=== PATIENT | male | born 1955 | race Caucasian/White ===

== ENCOUNTER → 2018-03-27 | Outpatient (CLI) | payer OTHER ==
[~2018-03-27] MED LIST: IOPAMIDOL (ISOVUE 370) 100 ML BTL IV ONE; METOPROLOL TARTRATE 5 MG/5 ML INJ ONE
== END ==
LOC: FIMAGING 14:00
PROVIDERS: ATTEND Internal Medicine Interventional Cardiology
DX: Z01.810 Encounter for preprocedural cardiovascular examination (principal); I71.2 Thoracic aortic aneurysm, without rupture; I10 Essential (primary) hypertension; I35.1 Nonrheumatic aortic (valve) insufficiency; R94.31 Abnormal electrocardiogram [ECG] [EKG]
CPT/HCPCS: Q9967

== ENCOUNTER 2018-03-29 08:26 | Day surgery (SDC) | payer OTHER ==
[2018-03-29] MEDS ORDERED: ceFAZolin 2 GM/DEXTROSE 100 ML IV ONE (09:00)
[2018-03-29] MEDS ORDERED: LR 1,000 ML IV ONE (09:01)
--- NOTE | 2018-03-29 10:00 | PDHPUP ---
History & Physical Update H&P update statement: This history and physical update is based on an assessment of the patient which was completed after admission or registration (within 24 hours), but prior to the surgery/procedure. H&P update: H&P reviewed & patient examined, no change in patient's condition since H&P completed
--- NOTE | 2018-03-29 10:10 | PDANEPAE ---
ANE History of Present Illness ventral hernia repair possible mesh ANE Past Medical History - Cardiovascular History Hx Hypertension: Yes Hx Arrhythmias: No Hx Chest Pain: No Hx Coronary Artery / Peripheral Vascular Disease: Yes Hx CHF / Valvular Disease: Yes Hx Palpitations: No Cardiovascular History Comment: Ascending AO dilated to 4.6 cm. mod/severe AI - Pulmonary History Hx COPD: No Hx Asthma/Reactive Airway Disease: No Hx Recent Upper Respiratory Infection: No Hx Oxygen in Use at Home: No Hx Sleep Apnea: No Sleep Apnea Screening Result - Last Documented: Positive Pulmonary History Comment: MAXIMO triggers only - Neurologic History Hx Cerebrovascular Accident: No Hx Seizures: No Hx Dementia: No - Endocrine History Hx Diabetes: No - Renal History Hx Renal Disorders: No - Liver History Hx Hepatic Disorders: No - Neurological & Psychiatric Hx Hx Neurological and Psychiatric Disorders: No - Cancer History Hx Cancer: No - Congenital Disorder History Hx Congenital Disorders: No - GI History Hx Gastrointestinal Disorders: No - Other Health History Other Health History: wears glasses - Chronic Pain History Chronic Pain: No - Surgical History Prior Surgeries: left knee scope, 2018. Kaiden hoang Review of Systems Review of Systems: - Exercise capacity METS (RN): 4 METS ANE Patient History - Allergies Allergies/Adverse Reactions: No Known Allergies Allergy (Verified 03/26/18 13:28) - Home Medications Home medications: home medication list seen and reviewed Home Medications: Amlodipine Besylate 03/26/18 [Last Taken 03/29/18 07:15] - NPO status NPO Status: no food or drink >8 hours NPO Since - Liquids (Date): 03/29/18 NPO Since - Liquids (Time): 07:15 NPO Since - Solids (Date): 03/28/18 NPO Since - Solids (Time): 20:00 - Smoking Hx Smoking Status: Never smoked - Alcohol Use Alcohol Use: Occasionally - Family Anes Hx Family Anes Hx: none Family Hx Anesthesia Complications: none ANE Labs/Vital Signs - Vital Signs Blood Pressure: 120/75 Heart Rate: 55 Respiratory Rate: 16 O2 Sat (%): 94 Height: 170.18 cm Weight: 95.361 kg ANE Physical Exam - Airway Mallampati Score: Class 2 Mouth exam: normal dental/mouth exam - Pulmonary Pulmonary: no respiratory distress - Cardiovascular Cardiovascular: regular rate and rhythym - ASA Status ASA Status: II ANE Anesthesia Plan Anesthesia Plan: general endotracheal anesthesia
[2018-03-29] MEDS ORDERED: BUPIVACAINE 0.5% 30 ML SDV ONE (10:14)
[2018-03-29] MEDS ORDERED: PROPOFOL/EMULSION 500 MG/50 ML BOTTLE IV ONE (10:24)
[2018-03-29] MEDS ORDERED: ROCURONIUM 50 MG/5 ML VIAL ONE (10:24)
[2018-03-29] MEDS ORDERED: fentaNYL 100 MCG/2 ML INJ ONE ×2 (10:24→12:29)
[2018-03-29] MEDS ORDERED: DEXAMETHASONE 4 MG/ML VIAL ONE ×2 (10:24)
[2018-03-29] MEDS ORDERED: ONDANSETRON 4 MG/2 ML VIAL ONE (10:25)
[2018-03-29] MEDS ORDERED: LIDOCAINE 2% 100 MG/5 ML SYR ONE (10:25)
[2018-03-29] MEDS ORDERED: LIDOCAINE HCL 160 MG/4 ML LTA KIT TP ONE (10:27)
[2018-03-29] MEDS ORDERED: LABETALOL HCL 5 MG/ML 20 ML MDV IVP PRN (11:33)
[2018-03-29] MEDS ORDERED: ACETAMINOPHEN 500 MG TAB PO PRN (11:33)
[2018-03-29] MEDS ORDERED: oxyCODONE IR 5 MG TAB PO PRN (11:33)
[2018-03-29] MEDS ORDERED: MEPERIDINE 25 MG/0.5 ML AMP IVP PRN (11:33)
[2018-03-29] MEDS ORDERED: LR 500 ML IV PRN (11:33)
[2018-03-29] MEDS ORDERED: HYDROCODONE/APAP 5/325 TAB PO PRN (11:33)
[2018-03-29] MEDS ORDERED: METOCLOPRAMIDE 10 MG/2 ML VIAL IVP PRN (11:33)
[2018-03-29] MEDS ORDERED: DEXAMETHASONE 4 MG/ML VIAL IVP PRN (11:33)
[2018-03-29] MEDS ORDERED: NALOXONE HCL 0.4 MG/ML INJ IVP PRN (11:33)
[2018-03-29] MEDS ORDERED: PROMETHAZINE HCL 25 MG/ML INJ IVP PRN (11:33)
[2018-03-29] MEDS ORDERED: ONDANSETRON 4 MG/2 ML VIAL IVP PRN (11:33)
[2018-03-29] MEDS ORDERED: PHENYLEPHRINE HCL 100 MCG/ML SYR IVP PRN (11:33)
[2018-03-29] MEDS ORDERED: fentaNYL 100 MCG/2 ML INJ IVP PRN (11:33)
[2018-03-29] MEDS ORDERED: ALBUTEROL 3 ML DEYVIAL IH PRN (11:33)
[2018-03-29] MEDS ORDERED: GLYCOPYRROLATE 0.2 MG/1 ML VIAL ONE ×2 (11:37)
[2018-03-29] MEDS ORDERED: NEOSTIGMINE METHYLSULFATE 5 MG/5 ML SYR ONE (11:37)
--- NOTE | 2018-03-29 12:00 | POSTOPPROG ---
Post Op Note Date of Operation: 03/29/18 Surgeon: Cisco Dunlap Sign Out Clerk: Kerline Anesthesiologist: Bruce Anesthesia: GET(General Endotracheal) Pre-op Diagnosis: Ventral hernia Post-op Diagnosis: Ventral hernia, umbilical hernia Indication: pain Procedure: Ventral and umbilical hernia repairs Findings: Small ventral hernia and umbilical hernia Inf/Abcess present in the surg proc area at time of surgery?: No Depth: Organ Space EBL: Minimal Specimen(s): ventral hernia sac
[2018-03-29] MEDS ORDERED: oxyCODONE IR 5 MG TAB ONE ×2 (12:20→13:13)
--- NOTE | 2018-03-29 13:26 | POSTANESTH ---
Post Anesthetic Evaluation Cardiovascular Status: Normal, Stable Respiratory Status: Normal, Stable Level of Consciousness/Mental Status: Can Participate in Eval Pain Control: Adequate, Prn Tx Ordered Nausea/Vomiting Control: Adequate, Prn Tx Ordered Complications Possibly Related to Anesthesia: None Noted
[2018-03-29 15:27] VITALS: BP 136/83
--- NOTE | 2018-04-01 12:29 | GOP ---
DATE OF OPERATION: 03/29/2018 SURGEON: Cisco Dunlap MD ICE CUTTER: Kathy Churchill NP ANESTHESIOLOGIST: Lan Barrera MD PREOPERATIVE DIAGNOSIS: Ventral hernia. POSTOPERATIVE DIAGNOSIS: Ventral hernia plus umbilical hernia. PROCEDURE PERFORMED: OPEN VENTRAL HERNIA REPAIR WITH MESH AND UMBILICAL HERNIA REPAIR FINDINGS: Patient was found to have a 5 cm ventral hernia. He also had a small less than 1 cm umbilical hernia. DESCRIPTION OF PROCEDURE: The patient was taken to the operating room where he received a satisfactory general endotracheal anesthesia. He was placed in supine position, prepped and draped in the usual sterile fashion. A vertical midline incision was made over the palpable hernia defect. Dissection extended down through subcutaneous tissue. The hernia sac was dissected free from surrounding subcutaneous tissue back to the fascial edges. The sac was then opened and its contents reduced. Excess sac was excised. Subfascial space was created. The fascial edges were freshened up and dissecting distally. A small umbilical hernia was identified. This was freed up and then closed with 0 Ethibond [id number] sutures from inside the abdomen. The subcutaneous was then approximated with 3-0 Vicryl, and a dual-sided Covidien mesh patch was placed subfascially and secured around the periphery with interrupted 0 Ethibond mattress sutures. The primary defect was then closed with interrupted #1 Ethibond [id number] sutures. These were tied without tension. The wound was infiltrated with 0.5% Marcaine. Subcutaneous was closed with 3-0 Vicryl, skin with a 4-0 Monocryl subcuticular stitch. He tolerated the procedure well, was taken to the recovery room in good condition. There were no complications. /[id number]/MODL MTDD
== END 2018-03-29 15:20 | disposition home or self-care (01) ==
LOC: FSGY 08:26
PROVIDERS: ATTEND Surgery
PROC: 0WUF0JZ Supplement Abdominal Wall with Synthetic Substitute, Open Approach (ICD-10-PCS; principal; 2018-03-29 10:15)
DX: K43.9 Ventral hernia without obstruction or gangrene (principal); K42.9 Umbilical hernia without obstruction or gangrene; I10 Essential (primary) hypertension
CPT/HCPCS: C1781; J0690; J1100; J2001; J2405; J2704; J2710; J3010

== ENCOUNTER 2018-06-26 12:29 | Inpatient (IN) | payer OTHER ==
[2018-06-26] MEDS ORDERED: NS 1,000 ML IV ONE (12:41)
[2018-06-26] MEDS ORDERED: FAMOTIDINE 20 MG TAB PO ONE (12:41)
[2018-06-26] MEDS ORDERED: ASPIRIN EC 325 MG TAB PO ONE ×2 (12:41→12:57)
[2018-06-26] MEDS ORDERED: DIAZEPAM 5 MG TAB PO ONE (12:41)
[2018-06-26] MEDS ORDERED: diphenhydrAMINE 25 MG CAP PO ONE ×2 (12:41→12:56)
[2018-06-26] MEDS ORDERED: FAMOTIDINE 20 MG TAB ONE (12:56)
[2018-06-26] MEDS ORDERED: DIAZEPAM 5 MG TAB ONE (12:57)
[2018-06-26 13:21] LABS: PLATELET COUNT 231 10^3/uL (150-400)
[2018-06-26 13:30] LABS: INR 0.97 (0.83-1.16); PROTIME(PATIENT) 13.1 SEC (12.0-15.0)
--- NOTE | 2018-06-26 13:33 | PDGENHP ---
History & Physical Chief Complaint: Valvular heart disease andthoracic aortic aneurysm. History of Present Illness: 62 y/o male with severe aortic regurgitation and dilated ascending aorta that have been followed longitudinally. Most recent echo demonstrated that the LV has started to dilate. He is now scheduled for AVR and TAA repair tomorrow. Needs cath to assess for CAD. Pertinent Past, Social, Family History: See CT surgery note from 04/23/2018. Relevant Physical Exam: A&O x 3. Lungs CTA. RRR w/o M/R/G. No edema. Enmanuel test on right wrist normal at < 5 sec.
--- NOTE | 2018-06-26 13:35 | PDPROPOC ---
Sedation Plan of Care Sedation Plan of Care: vital signs stable, mental status noted, patient educated of risks, benefits, alternatives, patient can tolerate sedation ASA Classification: ASA 1 Planned drugs: fentanyl, midazolam Mallampati Score: Class 2 Mallampati Reference Image: Patient passed 3-3-2 rule?: Yes
[2018-06-26] MEDS ORDERED: LIDOCAINE 1% 300 MG/30 ML SDV ONE (13:49)
[2018-06-26] MEDS ORDERED: VERAPAMIL 5 MG/2 ML VIAL ONE (13:50)
[2018-06-26] MEDS ORDERED: fentaNYL 100 MCG/2 ML INJ ONE (13:50)
[2018-06-26] MEDS ORDERED: MIDAZOLAM 2 MG/2 ML VIAL ONE (13:50)
[2018-06-26] MEDS ORDERED: HEPARIN 10,000 UNIT/10 ML MDV (1,000 UNIT/ML) ONE (13:51)
[2018-06-26] MEDS ORDERED: IOPAMIDOL (ISOVUE-370) 150 ML BTL IV ONE (13:51)
[2018-06-26] MEDS ORDERED: ATROPINE SULFATE 1 MG/10 ML SYR IVP PRN (14:59)
[2018-06-26] MEDS ORDERED: ONDANSETRON 4 MG/2 ML VIAL IVP PRN (14:59)
[2018-06-26] MEDS ORDERED: ACETAMINOPHEN 325 MG TAB PO PRN (14:59)
[2018-06-26] MEDS ORDERED: HYDROCODONE/APAP 5/325 TAB PO PRN (14:59)
[2018-06-26] MEDS ORDERED: NS 1,000 ML IV SCH (15:00)
--- NOTE | 2018-06-26 15:09 | PDDXCAT ---
Diagnostic Cath Note - . Date: 06/26/18 Pickling Machine Operator: Chance Indication: other (Pre-op for AVR and TAA repair.) - Procedure Access: right groin (started from right radial but had to switch due to innominate tortusoity) - Materials Left Heart Cath size: 5F
--- NOTE | 2018-06-26 16:36 | PDGENHP ---
History and Physical - Chief Complaint preop AVR, ascending aortic replacement - History of Present Illness 62 yo hypertensive male with a 4.7 cm ascending aorta and significant AI (of a trileaflet aortic valve), assoc with onset of left chamber dilatation and class II functional symptoms, admitted in advance of elective AVR/asc ao replacement to complete surgical risk stratification. No obstructive coronary or carotid disease identified. He denies changes in weight, stamina or dyspnea. No orthopnea, edema, or palpitations. History Information - Allergies/Home Medication List Allergies/Adverse Reactions: No Known Allergies Allergy (Verified 06/21/18 12:32) Home Medications: amLODIPine BESYLATE [Norvasc 5 mg (*)] 5 mg PO BID #0 03/26/18 [Last Taken 06/26] Carboxymethylcellulose 1% [Refresh Celluvisc (*)] 1 drop EACHEYE Q2 PRN [Last Taken Unknown] Ibuprofen [Motrin (*)] 600 mg PO TID PRN 06/19/18 [Last Taken Unknown] I have personally reviewed and updated: medical history, social history, surgical history - Past Medical History hypertension, hyperlipidemia - Surgical History Reports: hernia repair Additional surgical history: knee surgery - Social History Smoking Status: Never smoked Alcohol Use: Other (beer, daily) Review of Systems Review of Systems: ROS: 10pt was reviewed & negative except for what was stated in HPI & below Physical Exam Physical Exam: Constitutional: no apparent distress, appears nourished Eyes: other (PER) Ears, Nose, Mouth, Throat: moist mucous membranes, hearing normal, other (no visible dental disrepair) Cardiovascular: regular rate and rhythym, diastolic murmur, other (water hammer pulses) Peripheral Pulses: 3+: dorsalis-pedis (R), dorsalis-pedis (L) Respiratory: clear to auscultation Gastrointestinal: normoactive bowel sounds, soft, non-tender abdomen Genitourinary: no bladder fullness Skin: warm, no rashes or abrasions Musculoskeletal: other (symmetric tone) Psychiatric: interacting appropriately, not anxious Lab Data & Imaging Review 06/26/18 13:00 06/27/18 04:38 WBC 4.59 10^3/uL (3.80-9.50) 06/26/18 13:00 RBC 4.83 10^6/uL (4.40-6.38) 06/26/18 13:00 Hgb 15.0 g/dL (13.7-17.5) 06/26/18 13:00 Hct 43.0 % (40.0-51.0) 06/26/18 13:00 MCV 89.0 fL (81.5-99.8) 06/26/18 13:00 MCH 31.1 pg (27.9-34.1) 06/26/18 13:00 MCHC 34.9 g/dL (32.4-36.7) 06/26/18 13:00 RDW 12.5 % (11.5-15.2) 06/26/18 13:00 Plt Count 231 10^3/uL (150-400) 06/26/18 13:00 MPV 9.7 fL (8.7-11.7) 06/26/18 13:00 Neut % (Auto) 54.5 % (39.3-74.2) 06/26/18 13:00 Lymph % (Auto) 30.1 % (15.0-45.0) 06/26/18 13:00 [place] % (Auto) 12.4 % (4.5-13.0) 06/26/18 13:00 Eos % (Auto) 2.4 % (0.6-7.6) 06/26/18 13:00 Baso % (Auto) 0.4 % (0.3-1.7) 06/26/18 13:00 Nucleat RBC Rel Count 0.0 % (0.0-0.2) 06/26/18 13:00 Absolute Neuts (auto) 2.50 10^3/uL (1.70-6.50) 06/26/18 13:00 Absolute Lymphs (auto) 1.38 10^3/uL (1.00-3.00) 06/26/18 13:00 Absolute Monos (auto) 0.57 10^3/uL (0.30-0.80) 06/26/18 13:00 Absolute Eos (auto) 0.11 10^3/uL (0.03-0.40) 06/26/18 13:00 Absolute Basos (auto) 0.02 10^3/uL (0.02-0.10) 06/26/18 13:00 Absolute Nucleated RBC 0.00 10^3/uL (0-0.01) 06/26/18 13:00 Immature Gran % 0.2 % (0.0-1.1) 06/26/18 13:00 Immature Gran # 0.01 10^3/uL (0.00-0.10) 06/26/18 13:00 PT 13.1 SEC (12.0-15.0) 06/26/18 13:00 INR 0.97 (0.83-1.16) 06/26/18 13:00 Sodium 138 mEq/L (135-145) 06/26/18 13:00 Potassium 4.2 mEq/L (3.5-5.2) 06/26/18 13:00 Chloride 110 mEq/L (97-110) 06/26/18 13:00 Carbon Dioxide 22 mEq/l (22-31) 06/26/18 13:00 Anion Gap 6 mEq/L (6-14) 06/26/18 13:00 BUN 20 mg/dL (7-23) 06/26/18 13:00 Creatinine 1.0 mg/dL (0.7-1.3) 06/26/18 13:00 Estimated GFR > 60 06/26/18 13:00 Glucose 84 mg/dL (70-100) 06/26/18 13:00 Hemoglobin A1c 5.5 % (4.0-6.0) 06/26/18 13:00 Estim Average Glucose 111 mg/dL (68-126) 06/26/18 13:00 Calcium 9.1 mg/dL (8.5-10.4) 06/26/18 13:00 Magnesium 2.1 mg/dL (1.6-2.3) 06/26/18 13:00 Triglycerides 90 mg/dL (40-150) 06/26/18 13:00 Cholesterol 212 mg/dL (140-220) 06/26/18 13:00 Cholesterol Risk Factr 0.4 (0.2-1.0) 06/26/18 13:00 LDL Cholesterol, Calc 106 mg/dL (80-100) H 06/26/18 13:00 LDL Risk Factor 0.6 (0.2-1.0) 06/26/18 13:00 VLDL Cholesterol 18 mg/dL (8-25) 06/26/18 13:00 Non-HDL Cholesterol 124 mg/dL (90-129) 06/26/18 13:00 HDL Cholesterol 88 mg/dL (40-65) H 06/26/18 13:00 LDL/HDL Ratio 1.20 RATIO (1.00-3.64) 06/26/18 13:00 Cholesterol/HDL Ratio 2.41 RATIO (1.00-4.97) 06/26/18 13:00 Patient ABO/Rh O POSITIVE 06/26/18 13:00 Antibody Screen NEGATIVE 06/26/18 13:00 Imaging Review: CT scan, carotid US, echo reports EKG Interpretation: Positive for: normal sinsus rhythm, other (LAFB) Assessment & Plan Assessment: Aneurysmal ascending aorta Symptomatic AI Valvular cardiomyopathy CAD excluded Plan: Tissue AVR and ascending aortic replacement 06/27 as planned Consent per Dr Ball. No questions/concerns voiced.
[2018-06-26] MEDS ORDERED: BEER 1 EACH EA PO PRN (18:29)
[2018-06-26] MEDS ORDERED: CHLORHEXIDINE GLUC HIBICLENS 118 ML BTL TP SCH (21:00)
[2018-06-26] MEDS: MUPIROCIN 2% 22 GM OINT NS SCH (21:44)
[2018-06-26] MEDS: SENNOSIDES/DOCUSATE SODIUM TAB PO SCH (21:44)
[2018-06-27] MEDS ORDERED: ceFAZolin 2 GM/DEXTROSE 100 ML IV ONE ×2 (06:00→08:30)
[2018-06-27] MEDS ORDERED: LR 1,000 ML IV ONE (06:11)
[2018-06-27] MEDS ORDERED: ALBUMIN 5% 250 ML BOTTLE IV ONE ×2 (06:20→10:47)
[2018-06-27] MEDS ORDERED: PHENYLEPHRINE HCL 100 MCG/ML SYR ONE (06:20)
[2018-06-27] MEDS ORDERED: PROPOFOL/EMULSION 500 MG/50 ML BOTTLE IV ONE (06:20)
[2018-06-27] MEDS ORDERED: CALCIUM CHLORIDE 1 GM/10 ML INJ ONE (06:20)
[2018-06-27] MEDS ORDERED: PROTAMINE SULFATE 50 MG/5 ML VIAL IVP ONE (06:20)
[2018-06-27] MEDS ORDERED: NITROGLYCERIN/D5W 50 MG/250 ML BOTTLE IV ONE (06:20)
[2018-06-27] MEDS ORDERED: SODIUM BICARBONATE 50 MEQ/50 ML SYR ONE (06:20)
[2018-06-27] MEDS ORDERED: CITRATE DEXTROSE SOLN 500 ML BAG ONE (06:20)
[2018-06-27] MEDS ORDERED: AMINOCAPROIC ACID 5 GM/20 ML VIAL ONE ×2 (06:20)
[2018-06-27] MEDS: MUPIROCIN 2% 22 GM OINT NS SCH ×2 (06:28→19:53)
[2018-06-27] MEDS ORDERED: ePHEDrine SULFATE 25 MG/5 ML SYR ONE (07:00)
[2018-06-27] MEDS ORDERED: LIDOCAINE 2% 100 MG/5 ML SYR ONE (07:00)
[2018-06-27] MEDS ORDERED: MINERAL OIL 10 ML VIAL ONE (07:00)
[2018-06-27] MEDS ORDERED: fentaNYL 250 MCG/5 ML INJ ONE (07:00)
[2018-06-27] MEDS ORDERED: HEPARIN 10,000 UNIT/10 ML MDV (1,000 UNIT/ML) ONE (07:00)
[2018-06-27] MEDS ORDERED: MAGNESIUM SULFATE 1 GM/2 ML VIAL ONE (07:00)
[2018-06-27] MEDS ORDERED: MIDAZOLAM 2 MG/2 ML VIAL ONE (07:18)
[2018-06-27] MEDS ORDERED: DEXAMETHASONE 4 MG/ML VIAL ONE ×2 (07:51)
[2018-06-27] MEDS ORDERED: KETAMINE 200 MG/20 ML VIAL ONE (07:56)
--- NOTE | 2018-06-27 08:27 | PDANEPAE ---
ANE History of Present Illness here for AVR ANE Past Medical History - Cardiovascular History Hx Hypertension: Yes Hx Arrhythmias: No Hx Chest Pain: No Hx Coronary Artery / Peripheral Vascular Disease: Yes Hx CHF / Valvular Disease: Yes Hx Palpitations: No Cardiovascular History Comment: Ascending AO dilated to 4.6 cm. mod/severe AI - Pulmonary History Hx COPD: No Hx Asthma/Reactive Airway Disease: No Hx Recent Upper Respiratory Infection: No Hx Oxygen in Use at Home: No Hx Sleep Apnea: No Sleep Apnea Screening Result - Last Documented: Positive Pulmonary History Comment: MAXIMO triggers only - Neurologic History Hx Cerebrovascular Accident: No Hx Seizures: No Hx Dementia: No - Endocrine History Hx Diabetes: No - Renal History Hx Renal Disorders: No - Liver History Hx Hepatic Disorders: No - Neurological & Psychiatric Hx Hx Neurological and Psychiatric Disorders: No - Cancer History Hx Cancer: No - Congenital Disorder History Hx Congenital Disorders: No - GI History Hx Gastrointestinal Disorders: No - Other Health History Other Health History: wears glasses - Chronic Pain History Chronic Pain: No - Surgical History Prior Surgeries: left knee scope, 2018. Kaiden hoang Review of Systems Review of systems is: negative Review of Systems: - Exercise capacity Exercise capacity: >=4 METS ANE Patient History - Allergies Allergies/Adverse Reactions: No Known Allergies Allergy (Verified 06/21/18 12:32) - Home Medications Home medications: home medication list seen and reviewed Home Medications: amLODIPine BESYLATE [Norvasc 5 mg (*)] 5 mg PO BID #0 03/26/18 [Last Taken 06/26] Carboxymethylcellulose 1% [Refresh Celluvisc (*)] 1 drop EACHEYE Q2 PRN [Last Taken Unknown] Ibuprofen [Motrin (*)] 600 mg PO TID PRN 06/19/18 [Last Taken Unknown] - NPO status NPO Status: no food or drink >8 hours NPO Since - Liquids (Date): 06/27/18 NPO Since - Liquids (Time): 05:00 NPO Since - Solids (Date): 06/27/18 NPO Since - Solids (Time): 00:01 - Smoking Hx Smoking Status: Never smoked - Alcohol Use Alcohol Use: Other (beer, daily) - Family Anes Hx Family Hx Anesthesia Complications: none ANE Labs/Vital Signs - Labs Result Diagrams: 06/26/18 13:00 06/27/18 04:38 - Vital Signs Vital Signs: reviewed preoperatively; see RN documention for details Blood Pressure: 156/81 Heart Rate: 63 Respiratory Rate: 16 O2 Sat (%): 94 Height: 170.18 cm Weight: 96.4 kg ANE Physical Exam - Airway Neck exam: FROM Mallampati Score: Class 1 - Pulmonary Pulmonary: no respiratory distress - Cardiovascular Cardiovascular: regular rate and rhythym - ASA Status ASA Status: III ANE Anesthesia Plan Anesthesia Plan: general endotracheal anesthesia Lines/Monitors: arterial line, central line, MITCH
[2018-06-27] MEDS ORDERED: DIAZEPAM 5 MG TAB PO ONE (08:30)
[2018-06-27] MEDS ORDERED: diphenhydrAMINE 25 MG CAP PO ONE (08:30)
[2018-06-27] MEDS ORDERED: MIDAZOLAM 2 MG/2 ML VIAL IVP ONE (08:45)
[2018-06-27] MEDS ORDERED: FAMOTIDINE 20 MG TAB PO ONE (08:45)
[2018-06-27] MEDS ORDERED: MUPIROCIN 2% 22 GM OINT NS ONE (08:45)
[2018-06-27] MEDS ORDERED: MANNITOL 25% 12.5 GM/50 ML VIAL IVP ONE (09:00)
[2018-06-27] MEDS ORDERED: PHENYLEPHRINE HCL 50 MG in NS 250 ML IV ONE (09:00)
[2018-06-27] MEDS ORDERED: NOREPINEPHRINE BITARTRATE 16 MG in NS 250 ML IV ONE (09:00)
[2018-06-27] MEDS ORDERED: NS 1,000 ML IV ONE (09:00)
[2018-06-27] MEDS ORDERED: niCARdipine/NACL 200 ML IV ONE (09:00)
[2018-06-27] MEDS ORDERED: CARDIOPLEGIA DEL NIDO SOLN 1,052.8 ML PF ONE (09:00)
[2018-06-27] MEDS ORDERED: INSULIN REGULAR HUMAN 100 UNIT in NS 100 ML IV ONE (09:00)
[2018-06-27] MEDS ORDERED: CARDIOPLEGIC SOLUTION 1,052.8 ML PF ONE (09:30)
--- NOTE | 2018-06-27 09:42 | CPEKG ---
Test Reason : OPEN Blood Pressure : / mmHG Vent. Rate : 063 BPM Atrial Rate : 063 BPM P-R Int : 184 ms QRS Dur : 108 ms QT Int : 434 ms P-R-T Axes : 014 -51 010 degrees QTc Int : 445 ms Sinus rhythm Left anterior fascicular block Borderline T wave abnormalities Confirmed by Dakota Ma ([id number]) on 06/27/2018 9:41:44 AM Referred By: Confirmed By:Dakota Ma
[2018-06-27] MEDS ORDERED: HYDROmorphONE/DILAUDID 2 MG/ML INJ ONE (09:49)
[2018-06-27] MEDS ORDERED: SUGAMMADEX SODIUM 200 MG/2 ML VIAL IVP ONE (09:58)
[2018-06-27] MEDS ORDERED: LACTULOSE 20 GM/30 ML UDCUP PO PRN (10:41)
[2018-06-27] MEDS ORDERED: ONDANSETRON DISINTEGRATING 4 MG TAB PO PRN (10:41)
[2018-06-27] MEDS ORDERED: METOCLOPRAMIDE 10 MG/2 ML VIAL IVP PRN (10:41)
[2018-06-27] MEDS ORDERED: MAGNESIUM HYDROXIDE 30 ML UDCUP PO PRN (10:41)
[2018-06-27] MEDS ORDERED: CEPACOL LOZENGE PO PRN (10:41)
[2018-06-27] MEDS ORDERED: D50W 25 GM/50 ML SYR IVP PRN (10:41)
[2018-06-27] MEDS ORDERED: POTASSIUM Cl (KCl) 50 ML IV PRN (10:41)
[2018-06-27] MEDS ORDERED: SODIUM CL NASAL 45 ML BTL EACHNARE PRN (10:41)
[2018-06-27] MEDS ORDERED: MEPERIDINE 25 MG/0.5 ML AMP IVP PRN (10:41)
[2018-06-27] MEDS ORDERED: POLYETHYLENE GLYCOL 3350 17 GM PKT PO PRN (10:41)
[2018-06-27] MEDS ORDERED: PANTOPRAZOLE SODIUM 40 MG VIAL IVP ONE (10:41)
[2018-06-27] MEDS ORDERED: niCARdipine/NACL 200 ML IV PRN (10:41)
[2018-06-27] MEDS ORDERED: BISACODYL 10 MG SUPP PR PRN (10:41)
[2018-06-27] MEDS ORDERED: CARBOXYMETHYLCELLULOSE 1% 0.4 ML DROPERETTE EACHEYE PRN ×2 (10:41→11:00)
[2018-06-27] MEDS ORDERED: NS 1,000 ML IV SCH (10:45)
[2018-06-27] MEDS ORDERED: PROPOFOL 200 MG/20 ML VIAL ONE (10:46)
[2018-06-27] MEDS ORDERED: INSULIN REGULAR HUMAN 100 UNIT in NS 100 ML IV SCH (11:00)
--- NOTE | 2018-06-27 11:25 | GOP ---
DATE OF OPERATION: 06/27/2018 SURGEON: John Ball DO HEPATOLOGY PHYSICIAN: Jono. ANESTHESIOLOGIST: Isael. PREOPERATIVE DIAGNOSIS: 1. Ascending aortic aneurysm. 2. Severe aortic insufficiency with left ventricular dilation. 3. Obesity. POSTOPERATIVE DIAGNOSIS: 1. Ascending aortic aneurysm. 2. Severe aortic insufficiency with left ventricular dilation. 3. Obesity. PROCEDURE PERFORMED: 1. Aortic valve replacement with a #27 Inspiris valve. 2. Replace the ascending aorta with a 28 mm Hemashield graft. 3. 35 mm AtriClip across the left atrial appendage. FINDINGS: DESCRIPTION OF PROCEDURE: The patient was consented for surgery, brought to the operating room, intu bated. Monitoring lines were placed. He was prepped and draped in sterile classical manner. Sterno kojo was performed. The patient was heparinized. Cannulas were placed in the transverse arch and ri ght atrium as well as a retrograde catheter. Cardiopulmonary bypass was begun. The aorta was crossc lamped. Retrograde cardioplegia was administered as well as topical hypothermia and systemic cooling . LV sump was placed through the right superior pulmonary vein. Aorta was excised from the sinotubu lar junction up to the base of the innominate artery. There was absolutely no evidence of plaque or fatty streaking in this patient's tissues, of note. A trileaflet valve with central regurgitation an d significant annular dilatation was identified. The leaflets were excised. There was no calcium or debris. LV chamber was irrigated. CO2 was infused. A 27 mm Inspiris valve was sutured in a supra- annular position with interrupted 2-0 Tycron pledgeted mattress sutures and Cor-Knots. We then place d a 28 mm Hemashield graft end to side distally and proximally with a continuous running 3-0 Prolene suture, reinforced in several sites with pledgeted mattress sutures. BioGlue was applied externally. We then placed a 35 mm clip across the base of the left atrial appendage. The patient was placed i n deep Trendelenburg. The crossclamp was removed with suction on the ascending and LV vent. With th e LV vent off, intermittent aspiration was performed through the apex until no further air was identi fied on echo. The LV sump was removed. The patient was easily weaned from bypass in Trendelenburg. When no further air was identified, he was flattened out in a horizontal position. Heparin was reve rsed with protamine. The cannula was removed and oversewn. Two ventricular pacing wires, 2 mediasti nal drains were placed. The thymic fat and pericardium were closed. The chest was closed in standar d fashion. The patient was returned to the ICU in stable condition. /[id number]/MODL
[2018-06-27] MEDS: ALBUMIN 5% 250 ML IV PRN ×2 (11:30→12:58)
[2018-06-27] MEDS: DEXMEDETOMIDINE HCL 400 MCG in NS 100 ML IV SCH (11:30)
[2018-06-27] MEDS: SENNOSIDES/DOCUSATE SODIUM TAB PO SCH (11:37)
--- NOTE | 2018-06-27 11:38 | POSTANESTH ---
Post Anesthetic Evaluation Cardiovascular Status: Normal, Stable Respiratory Status: Requires Airway Assist Level of Consciousness/Mental Status: Unconscious Pain Control: Adequate, Prn Tx Ordered Nausea/Vomiting Control: Adequate, Prn Tx Ordered Complications Possibly Related to Anesthesia: None Noted
[2018-06-27] MEDS: KETOROLAC 15 MG/1 ML SDV IVP SCH ×2 (12:19→18:10)
[2018-06-27] MEDS: fentaNYL 100 MCG/2 ML INJ IVP PRN ×2 (12:35→12:52)
[2018-06-27] MEDS ORDERED: traMADol 50 MG TAB PO PRN (13:00)
[2018-06-27] MEDS ORDERED: DOPamine/DEXTROSE 400 MG/250 ML BAG IV ONE (13:15)
[2018-06-27] MEDS: ceFAZolin 2 GM/DEXTROSE 100 ML IV SCH ×2 (14:02→23:06)
--- NOTE | 2018-06-27 14:29 | PDCONSULT ---
Research/Program Director Note: ASSESSMENT 62-year-old obese male with ascending aortic aneurysm and severe aortic insufficiency with LV dilation status post bioprosthetic AVR and ascending aortic aneurysm repair as well as CHANDU closure POD 0 # ascending aortic aneurysm status post repair # Severe aortic insufficiency status post repair # LV dilation secondary to above # morbid obesity # systemic hypertension # presumed obstructive sleep apnea # postoperative respiratory failure, expected. Appears to have a degree of postoperative V/Q mismatching and shunt which should resolve quickly # Etoh abuse PLAN # wean to extubate # low threshold for CPAP while in house given clinical concerns for MAXIMO and postoperative respiratory failure # restart oral antihypertensives after BP improves # aspirin 81 # consider atorvastatin # follow drain output # monitor for s/sx of w/d # Feeding - advance as tolerated # Analgesia APAP, fentanyl # Sedation Precedex # Thromboprophylaxis - SQ hep # Head of bed elevated # Ulcer prophylaxis - PPI # Glucose SSI # Skin no skin breakdown # Delirium - delirium precautions IMAGING I personally reviewed interpreted radiographic images as well as formal radiology reads 06/27/2018 chest x-ray postoperative changes as expected, MITCH probe in place. support lines and tubes in appropriate position CONSULT I was asked by Dr. Wilhelm and of cardiothoracic surgery to evaluate this patient for postoperative ICU care and respiratory failure Chief complaint Shortness of breath HPI Trevon is a very pleasant morbidly obese male with aortic insufficiency coronary disease and hypertension. He underwent a screening echocardiogram and CTA chest in the setting of preoperative clearance for ventral hernia repair. Based on severe findings on imaging as well as decreased functional status patient was referred urgently for cardiothoracic surgery. At initial time of presentation he denied fever chills, nausea vomiting, URI symptoms, new rashes, chest pain. He did have some presyncopal like symptoms. At time of this examination and interview patient is unable to participate due to sedation and altered mental status in the setting of immediate postoperative care and critical illness Allergies No known drug allergies Home medication Amlodipine 5 mg, aspirin Past medical and surgical history Aortic aneurysm, moderate to severe aortic insufficiency, ascending aortic aneurysm erectile dysfunction, GERD, hypertension, insomnia, presyncope, appendectomy, tonsillectomy, ventral hernia Family history Coronary disease CVA Social history Recently moved from [place], binge alcohol use primarily beer, former smoker quit years ago, now lives in [facility]. Review of systems Comprehensive 10 point review of systems on unable to be obtained secondary to patient's since mental status and critical illness Physical exam GEN: intubated, sedated NEURO: sedated, nonfocal, responds to pain HEENT: ETT in place NECK: supple, trachea midline CHEST surgical incision site clean dry and intact. Drains in place with sanguinous output CVS: Pericardial rub, no gallops, non tachy PULM: Mechanical breath sounds, no rales or rhonchi ABD: Protuberant, soft NT, ND, NABS EXT: Trace edema, no cyanosis, full ROM SKIN: warm, dry, intact, no rash PSYCH sedated Labs Reviewed Imaging As above
--- NOTE | 2018-06-27 15:22 | PDMN ---
Medical Necessity Medical necessity: MCG: S290 cardiac valve replacement or repair 5 days OP : AVR,
[2018-06-27] MEDS: ACETAMINOPHEN 325 MG TAB PO SCH (18:10)
[2018-06-27] MEDS ORDERED: ALBUMIN 5% 500 ML BOTTLE IV ONE (19:05)
[2018-06-27] MEDS ORDERED: ALBUMIN 5% 500 ML IV ONE (19:30)
[2018-06-27] MEDS: oxyCODONE IR 5 MG TAB PO PRN (19:30)
[2018-06-28] MEDS: KETOROLAC 15 MG/1 ML SDV IVP SCH ×5 (00:01→23:15)
[2018-06-28] MEDS: oxyCODONE IR 5 MG TAB PO PRN ×4 (00:11→16:35)
[2018-06-28] MEDS: ACETAMINOPHEN 325 MG TAB PO SCH ×5 (00:14→23:15)
[2018-06-28] MEDS: DEXMEDETOMIDINE HCL 400 MCG in NS 100 ML IV SCH (03:01)
[2018-06-28 04:41] LABS: PLATELET COUNT 119 10^3/uL (150-400)
[2018-06-28] MEDS: ceFAZolin 2 GM/DEXTROSE 100 ML IV SCH ×3 (05:35→22:39)
[2018-06-28] MEDS: HEPARIN 5,000 UNIT/0.5 ML INJ SC SCH ×3 (05:44→22:20)
--- NOTE | 2018-06-28 06:51 | SOAPPROG ---
SOAP Progress Note Assessment/Plan: Assessment: POD#1 AVR#27 Inspiris Resilia bioprosthesis, asc ao replacement #28 hemashield graft, prophylactic AtriClip ligation left atrial appendage Aneurysmal asc aorta with sx severe AI - s/p tissue AVR and dacron interposition grafting of asc aorta. Stable early postop course. No sig pressor needs. No tachyarrhythmias or backup pacing. Antithrombotic prophylaxis with ASA alone. AF prophylaxis with BB as allowed by BP. Acute expected blood loss anemia - Stable. No blood products transfused. VTE prophylaxis w SCDs and SQ hep. Acute postoperative respiratory insufficiency - Extubated without incident. Moderate suppl O2 req likely secondary to habitus/incisional pain. CXR neg for fluid overload, PTX or undrained effusion. Heavy alcohol user - 6-8 beers most days of the week. ETOH to be provided with meals. Plan: Routine POD#1 orders re wires, lines, drains, orals and mobility. Stop dopamine. Accept SBP > 90. Colloid prn CVP < 10. Optimize analgesia. Aggressive pulm toilet. Tx to PCU later today if off dopa and suppl O2 req < 5 lpm. 06/28/18 06:46 Subjective: Doing ok. Comfortable at rest. Hurts to take a deep breath. Denies SOB or retained phlegm. Craving a coffee. Objective: Vital Signs Temp Pulse Resp BP Pulse Ox 36.5 C 67 17 116/65 91 L 06/27/18 23:00 06/28/18 06:00 06/28/18 06:00 06/28/18 06:00 06/28/18 06:00 Laboratory Results 06/28/18 04:30 06/28/18 04:30 06/27/18 06/28/18 06/29/18 05:59 05:59 05:59 Intake Total 600 2450 Output Total 525 1650 Balance 75 800 PT 13.1 SEC (12.0-15.0) 06/26/18 13:00 INR 0.97 (0.83-1.16) 06/26/18 13:00 Dopa down to 1 mcg. Holding MAP > 70. HR controlled. Suppl O2 req up to 6 lpm. Balanced I/Os. CXR -> hypoventilation, no PTX, min pulm vasc congestion, left basilar atelectasis. Labs as expected. Physical Exam - Physical Exam General Appearance: alert, no apparent distress Respiratory: decreased breath sounds (bases), other (blakes x 2 y-d to pleurovac , serosang drainage, no air leak) Cardiac/Chest: regular rate, rhythm, other (Sternotomy CDI. Vwires intact.) Abdomen: normal bowel sounds, non-tender, soft Skin: warm/dry Extremities: swelling (1+ gen) ICD10 Worksheet Patient Problems: Problems Problem Status Onset Acute blood loss anemia Acute Aortic valve insufficiency Acute Ascending aortic aneurysm Acute Coronary artery disease excluded Acute S/P aortic valve replacement with bioprosthetic valve Acute ~06/27/18 S/P ascending aortic replacement Acute ~06/27/18
[2018-06-28] MEDS: ASPIRIN 81 MG CHEWABLE TAB PO SCH (09:01)
[2018-06-28] MEDS: PANTOPRAZOLE SODIUM 40 MG TAB PO SCH (09:01)
[2018-06-28] MEDS: MUPIROCIN 2% 22 GM OINT NS SCH ×2 (09:02→22:20)
[2018-06-28] MEDS ORDERED: BEER 1 EACH EA PO PRN (12:00)
--- NOTE | 2018-06-28 14:10 | PDINTPN ---
Director Of Catering Sales Progress Note Assessment/Plan: ASSESSMENT 62-year-old obese male with ascending aortic aneurysm and severe aortic insufficiency with LV dilation status post bioprosthetic AVR and ascending aortic aneurysm repair as well as CHANDU closure POD 1. # ascending aortic aneurysm status post repair # Severe aortic insufficiency status post repair # LV dilation secondary to above # morbid obesity # systemic hypertension # presumed obstructive sleep apnea # postoperative respiratory failure, expected. Appears to have a degree of postoperative V/Q mismatching and shunt which should resolve quickly # Etoh abuse PLAN # aggressive pulmonary toilet # low threshold for CPAP while in house given clinical concerns for MAXIMO and postoperative respiratory failure # restart oral antihypertensives after BP improves # aspirin 81 # consider atorvastatin # follow drain output # monitor for s/sx of w/d # Feeding - advance as tolerated # Analgesia APAP, fentanyl # Sedation Precedex # Thromboprophylaxis - SQ hep # Head of bed elevated # Ulcer prophylaxis - PPI # Glucose SSI # Skin no skin breakdown # Delirium - delirium precautions # agree with dispo to floor Subjective: Extubated yesterday night without difficulty. No signs or symptoms of alcohol withdrawal. Slept well. Some snoring. Mild chest pain. No fevers chills nausea vomiting or new leg swelling. Objective: Vital Signs Temp Pulse Resp BP Pulse Ox 37.0 C 78 14 112/72 90 L 06/28/18 08:00 06/28/18 10:59 06/28/18 10:00 06/28/18 10:00 06/28/18 10:59 Laboratory Results 06/28/18 04:30 06/28/18 04:30 06/27/18 06/28/18 06/29/18 05:59 05:59 05:59 Intake Total 600 2450 Output Total 525 1650 115 Balance 75 800 -115 PT 13.1 SEC (12.0-15.0) 06/26/18 13:00 INR 0.97 (0.83-1.16) 06/26/18 13:00 Physical Exam - Physical Exam General Appearance: alert, no apparent distress EENT: PERRL/EOMI, normal ENT inspection Neck: full range of motion, supple Respiratory: chest non-tender, lungs clear Cardiac/Chest: other (Incision site clean dry and intact. Pericardial rub. No murmurs) Abdomen: other (Distended) Skin: normal color, warm/dry, No cyanosis Extremities: normal range of motion, non-tender Neuro/Psych: no motor/sensory deficits, alert, normal mood/affect, oriented x 3 ICD10 Worksheet Patient Problems: Problems Problem Status Onset Acute blood loss anemia Acute Aortic valve insufficiency Acute Ascending aortic aneurysm Acute Coronary artery disease excluded Acute S/P aortic valve replacement with bioprosthetic valve Acute ~06/27/18 S/P ascending aortic replacement Acute ~06/27/18
--- NOTE | 2018-06-28 15:25 | CPEKG ---
Test Reason : OPEN Blood Pressure : / mmHG Vent. Rate : 065 BPM Atrial Rate : 065 BPM P-R Int : 182 ms QRS Dur : 103 ms QT Int : 462 ms P-R-T Axes : 048 -32 098 degrees QTc Int : 481 ms Sinus rhythm Inferior infarct, old Abnrm T, consider ischemia, anterolateral lds Confirmed by Dakota Ma ([id number]) on 06/28/2018 3:25:09 PM Referred By: Confirmed By:Dakota Ma
--- NOTE | 2018-06-28 17:05 | ASMTCMCOM ---
CM Note CM Note Notes: Pt is a 62 yo M with history of valvular heart disease and thorasic aortic aneurysm here for repair. Pt lives with . No therapies ordered. DC plan TBD as pt progresses medically. CM to follow. Plan: TBD Date Signed: 06/28/2018 05:04 PM Electronically Signed By:KETTY Ingram
[2018-06-29] MEDS: ACETAMINOPHEN 325 MG TAB PO SCH ×3 (05:46→17:40)
[2018-06-29] MEDS: HEPARIN 5,000 UNIT/0.5 ML INJ SC SCH ×3 (05:47→21:19)
[2018-06-29] MEDS: KETOROLAC 15 MG/1 ML SDV IVP SCH (05:47)
[2018-06-29 06:13] LABS: PLATELET COUNT 124 10^3/uL (150-400)
--- NOTE | 2018-06-29 07:47 | SOAPPROG ---
SOAP Progress Note Assessment/Plan: Assessment: POD#2 AVR#27 Inspiris Resilia bioprosthesis, asc ao replacement #28 hemashield graft, prophylactic AtriClip ligation left atrial appendage Aneurysmal asc aorta with sx severe AI - s/p tissue AVR and dacron interposition grafting of asc aorta. Stable early postop course. No prolonged pressor needs. No dysrhythmias. Antithrombotic prophylaxis with ASA alone pending stability of rhythm. AF prophylaxis with BB as allowed by BP. Acute expected blood loss anemia - Stable. No blood products transfused. VTE prophylaxis w SCDs and SQ hep. Acute postoperative respiratory insufficiency - Extubated without incident. Moderate suppl O2 req likely secondary to habitus/incisional pain. CXR neg for fluid overload, PTX or undrained effusion. Good response to multimodal analgesia. Heavy alcohol user - 6-8 beers most days of the week. ETOH to be provided with meals. Plan: Begin diuresis. TCPW and ant mediastinal drain removed. Start metoprolol tartrate 12.5 mg BID tonight. Cont inc activity as tolerated. Baseline postop echo Mon. Dispo - Anticipate home without services 06/29/18 07:45 Subjective: Didn't sleep well on account of mattress and secondary low back pain. Better in chair. Walk this am well tolerated. Objective: Vital Signs Temp Pulse Resp BP Pulse Ox 36.7 C 76 18 141/81 H 90 L 06/29/18 04:00 06/29/18 04:00 06/29/18 04:00 06/29/18 04:00 06/29/18 04:00 Laboratory Results 06/29/18 05:50 06/29/18 05:50 06/28/18 06/29/18 06/30/18 05:59 05:59 05:59 Intake Total 2450 840 Output Total 1650 1145 Balance 800 -305 PT 13.1 SEC (12.0-15.0) 06/26/18 13:00 INR 0.97 (0.83-1.16) 06/26/18 13:00 Holding SR. Uptrending SBPs, in part reactive to pain. Toradol not renewed d/t rise in Cr. Stable 3 lpm suppl O2 req. CTOP approaching removal criteria. - Pending Discharge Pending Discharge Within 48 Hours: Yes Pending Discharge Date: 07/01/18 Pending Discharge Time: 11:00 Physical Exam - Physical Exam General Appearance: alert, no apparent distress Respiratory: lungs clear (improved insp effort), other (blakes x 2 to bulb suction, serosang drainage; ant med drain removed without incident) Cardiac/Chest: regular rate, rhythm, other (Sternotomy CDI. One Vwire removed, sutured/marked Vwire clipped at skin.) Abdomen: non-tender, soft Skin: warm/dry Extremities: swelling (1+ gen) ICD10 Worksheet Patient Problems: Problems Problem Status Onset Acute blood loss anemia Acute Aortic valve insufficiency Acute Ascending aortic aneurysm Acute Coronary artery disease excluded Acute S/P aortic valve replacement with bioprosthetic valve Acute ~06/27/18 S/P ascending aortic replacement Acute ~06/27/18
[2018-06-29] MEDS: PANTOPRAZOLE SODIUM 40 MG TAB PO SCH (08:05)
[2018-06-29] MEDS: ASPIRIN 81 MG CHEWABLE TAB PO SCH (08:05)
[2018-06-29] MEDS: MUPIROCIN 2% 22 GM OINT NS SCH (08:14)
[2018-06-29] MEDS: oxyCODONE IR 5 MG TAB PO PRN ×3 (08:38→22:10)
[2018-06-29] MEDS ORDERED: POTASSIUM CL 10 MEQ TAB PO ONE (09:00)
[2018-06-29] MEDS ORDERED: FUROSEMIDE 40 MG/4 ML VIAL IVP ONE (09:00)
[2018-06-29] MEDS: SENNOSIDES/DOCUSATE SODIUM TAB PO SCH ×2 (12:13→21:19)
[2018-06-29] MEDS ORDERED: METOPROLOL TARTRATE 25 MG TAB PO SCH (21:00)
[2018-06-30] MEDS: ACETAMINOPHEN 325 MG TAB PO SCH ×5 (00:47→23:35)
[2018-06-30] MEDS: HEPARIN 5,000 UNIT/0.5 ML INJ SC SCH ×3 (06:00→21:59)
--- NOTE | 2018-06-30 08:26 | SOAPPROG ---
SOAP Progress Note Assessment/Plan: Assessment: POD#3 AVR#27 Inspiris Resilia bioprosthesis, asc ao replacement #28 hemashield graft, prophylactic AtriClip ligation left atrial appendage Aneurysmal asc aorta with sx severe AI - s/p tissue AVR and dacron interposition grafting of asc aorta. Stable early postop course. No dysrhythmias. Vwires and 1 of 2 drains out. Antithrombotic prophylaxis with ASA alone. AF prophylaxis with BB/CCB as allowed by BP. Acute expected blood loss anemia - Stable. No blood products transfused. VTE prophylaxis w SCDs and SQ hep. Acute postoperative respiratory insufficiency - Resolved with analgesic adjustments. Heavy alcohol user - 6-8 beers most days of the week. ETOH to be provided with meals. Plan: Post mediastinal drain removed. Switch to oral diuresis. Switch metoprolol tartrate to (home) amlodipine. Cont inc activity as tolerated. Baseline postop echo tomorrow. Dispo - Anticipate home without services tomorrow. 06/30/18 08:24 Subjective: Better than yest. Restful sleep in recliner. Improving stamina and ambulatory capacity. Hopeful for home tomorrow. Objective: Vital Signs Temp Pulse Resp BP Pulse Ox 37.3 C 73 22 H 104/74 93 06/30/18 07:06 06/30/18 07:06 06/30/18 07:06 06/30/18 07:06 06/30/18 07:06 Laboratory Results 06/29/18 05:50 06/30/18 05:55 06/29/18 06/30/18 07/01/18 05:59 05:59 05:59 Intake Total 840 1550 Output Total 1145 1270 Balance -305 280 PT 13.1 SEC (12.0-15.0) 06/26/18 13:00 INR 0.97 (0.83-1.16) 06/26/18 13:00 Holding SR and SBPs > 100. Suppl O2 req down to 2lpm. Improving fluid balance. +4 kg overall. CTOP at removal criteria. Cr back to baseline. - Pending Discharge Pending Discharge Within 24 Hours: Yes Pending Discharge Date: 07/01/18 Pending Discharge Time: 11:00 Physical Exam - Physical Exam General Appearance: alert, no apparent distress Respiratory: crackles (bases), other (Joel to bulb suction, mostly serous drainage. Drain removed without incident) Cardiac/Chest: regular rate, rhythm, other (Sternum grossly stable. Sternotomy CDI) Abdomen: non-tender, soft Skin: warm/dry Extremities: swelling (trace - 1+ gen) ICD10 Worksheet Patient Problems: Problems Problem Status Onset Acute blood loss anemia Acute Aortic valve insufficiency Acute Ascending aortic aneurysm Acute Coronary artery disease excluded Acute S/P aortic valve replacement with bioprosthetic valve Acute ~06/27/18 S/P ascending aortic replacement Acute ~06/27/18
[2018-06-30] MEDS: ASPIRIN 81 MG CHEWABLE TAB PO SCH (09:28)
[2018-06-30] MEDS: SENNOSIDES/DOCUSATE SODIUM TAB PO SCH ×2 (09:29→20:27)
[2018-06-30] MEDS: FUROSEMIDE 40 MG TAB PO SCH ×2 (09:29→14:47)
[2018-06-30] MEDS: POTASSIUM CL 20 MEQ TAB PO SCH (09:29)
[2018-06-30] MEDS: PANTOPRAZOLE SODIUM 40 MG TAB PO SCH (09:29)
[2018-06-30] MEDS: oxyCODONE IR 5 MG TAB PO PRN ×2 (09:33→22:00)
--- NOTE | 2018-06-30 10:29 | ASMTCMCOM ---
CM Note CM Note Notes: Pt lives with who is supportive. PT/ OT recommending home. Pt has no other needs at this time, pt is independent. No other needs identified at this time. Date Signed: 06/30/2018 10:28 AM Electronically Signed By:KETTY Ingram
[2018-07-01] MEDS: ACETAMINOPHEN 325 MG TAB PO SCH (05:44)
[2018-07-01] MEDS: HEPARIN 5,000 UNIT/0.5 ML INJ SC SCH (05:54)
[2018-07-01 07:59] VITALS: BP 123/78
--- NOTE | 2018-07-01 08:08 | SOAPPROG ---
SOAP Progress Note Assessment/Plan: Assessment/Plan: Assessment: POD#4 AVR#27 Inspiris Resilia bioprosthesis, asc ao replacement #28 hemashield graft, prophylactic AtriClip ligation left atrial appendage Aneurysmal asc aorta with sx severe AI - s/p tissue AVR and dacron interposition grafting of asc aorta. Stable early postop course. No dysrhythmias. Vwires and drains out. Antithrombotic prophylaxis with ASA alone. AF prophylaxis with CCB (home Norvasc) as allowed by BP. Acute expected blood loss anemia - Stable. No blood products transfused. VTE prophylaxis w SCDs and SQ hep. Acute postoperative respiratory insufficiency - Resolved with analgesic adjustments. Heavy alcohol user - 6-8 beers most days of the week. ETOH to be provided with meals. Diuresis - on Lasix 40 mg BID PO daily with 20 mEq K+ PO daily. Pre-op wt 91 kg , today 97 kg. Appropriate UOP with good renal fcn. Trace edema in LE. He does not feel volume overloaded. Upon further inspection in [place], his wt when seen in clinic was 94.4 kg. Plan: Home Norvasc started yesterday at 2.5 mg PO BID, will increase to home dose of 5 mg PO BID Baseline postop echo Dispo - Anticipate home without services today with home oxygen Subjective: Doing well and okay with going home today. Objective: Vital Signs Temp Pulse Resp BP Pulse Ox 36.8 C 79 14 123/78 H 93 07/01/18 07:57 07/01/18 07:57 07/01/18 07:57 07/01/18 07:57 07/01/18 07:57 Laboratory Results 06/29/18 05:50 07/01/18 06:00 06/30/18 07/01/18 07/02/18 05:59 05:59 05:59 Intake Total 1550 1150 Output Total 1270 1425 Balance 280 -275 PT 13.1 SEC (12.0-15.0) 06/26/18 13:00 INR 0.97 (0.83-1.16) 06/26/18 13:00 - Physical Exam General Appearance: alert, no apparent distress Respiratory: 86% on RA, crackles at the bases Cardiac/Chest: regular rate, rhythm, other (Sternum grossly stable. Sternotomy CDI) Abdomen: non-tender, soft Skin: warm/dry Extremities: swelling (trace) ICD10 Worksheet Patient Problems: Problems Problem Status Onset Acute blood loss anemia Acute Aortic valve insufficiency Acute Ascending aortic aneurysm Acute Coronary artery disease excluded Acute S/P aortic valve replacement with bioprosthetic valve Acute ~06/27/18 S/P ascending aortic replacement Acute ~06/27/18
--- NOTE | 2018-07-01 08:24 | PDHOMEO2F ---
Home Oxygen Face to Face Home Orders: I certify that a physician or a nurse practitioner or physician's paperhanger assistant has had a [id number] encounter with this patient on the date of this order due to the diagnosis listed, which relates to the primary reason the patient requires home oxygen. Alternative treatments have been tried, or considered, and deemed ineffective. It is anticipated that supplemental oxygen will result in improvement with treatment. Home oxygen qualifying diagnosis: aortic valve replacement, ascending aorta resection & grafting SpO2 on room air (%): 86 Frequency of home oxygen needed: continuous Home oxygen liters per minute: 1 Home oxygen delivery device: nasal cannula Concentrator: Yes E-tanks for mobility and back up: Yes If ordering portable O2, is the patient mobile in the home?: Yes I certify that, based on these findings, the home oxygen is medically necessary for this patient for the following length of time. Length of time home oxygen needed: 1 month
[2018-07-01] MEDS ORDERED: amLODIPine BESYLATE 5 MG TAB PO SCH (09:00)
--- NOTE | 2018-07-01 09:07 | PDDCSUM ---
Discharge Summary Discharge Summary: DATE OF ADMISSION: 06/26/18 DATE OF DISCHARGE: 07/01/18 DISPOSITION: Home with oxygen ACTIVITY: Instructed on sternal precautions, activity restrictions, and problems to call [facility]. ADMISSION DIAGNOSES: Aneurysmal ascending aorta, 4.7 cm Symptomatic, severe aortic insufficiency LVEF 60% Hypertension Hyperlipidemia Heavy alcohol use DISCHARGE DIAGNOSES: As above plus, Acute blood loss anemia Acute postoperative respiratory insufficiency PROCEDURE PERFORMED: 06/26/18 (Chance) Left heart catheterization, No CAD 06/27/18 (Quinn) Aortic valve replacement with #27 Inspiris valve, Replacement of ascending aorta with a 28 mm Hemashield graft, 35 mm AtriClip across left atrial appendage. 07/01/18 (Elsy) Transthoracic echocardiogram HISTORY OF PRESENT ILLNESS: 62 yo hypertensive male with a 4.7 cm ascending aorta and significant AI (of a trileaflet aortic valve), assoc with onset of left chamber dilatation and class II functional symptoms, admitted in advance of elective AVR/asc ao replacement to complete surgical risk stratification. No obstructive coronary or carotid disease identified. He denies changes in weight, stamina or dyspnea. No orthopnea, edema, or palpitations. HOSPITAL COURSE BY PROBLEM LIST: Aneurysmal asc aorta with sx severe AI - Stable early postop course. No dysrhythmias. Antithrombotic prophylaxis with ASA alone. He received one day of Lopressor for AF prophylaxis and then was changed to his home CCB (Norvasc). Acute expected blood loss anemia - No blood products transfused. VTE ppx w SCDs and SQ hep. Acute postoperative respiratory insufficiency - Resolved with analgesic adjustments. Heavy alcohol user - 6-8 beers most days of the week. ETOH provided with meals. Hypervolemia - Pre-op wt 91 kg, discharge 97 kg. Appropriate UOP with good renal fcn. Trace edema in LE. He did not feel volume overloaded. Upon further inspection in [place], his wt when seen in clinic was 94.4 kg. He is to continue his lasix and fluid restriction until he reaches this weight (97->94). PERTINENT DISCHARGE CLINICAL INFORMATION: Sternotomy stable, CDI Trace LE edema HR 79 BP 123/78 SpO2 93% 1L clinic visit wt 94 kg/pre op wt 91 kg/discharge wt 97 kg WBC 11.7 Hgb 11 Hct 33 Plt 124 Na 134 K 4.0 Cr 1.0 CONSULTANTS: [facility] MEDICATIONS ON ADMISSION: Norvasc 5 mg PO BID Ibuprofen 600 mg PO TID PRN Carboxymethylcellulose PRN ALLERGIES/SENSITIVITIES: NKDA DISCHARGE MEDICATIONS: CONTINUE these medications: Norvasc 5 mg PO BID Ibuprofen 600 mg PO TID PRN Carboxymethylcellulose PRN NEW medications: Lasix 40 mg PO daily Klor-Con 20 mEq PO daily Oxycodone IR 5-10 mg PO q4hrs PRN #30 tabs Aspirin 81 mg PO daily Tylenol 650 mg PO q6hrs PRN FOLLOW UP APPOINTMENTS: 1. Dr. Ball at [facility] on 07/09/17 @ 10:45. 2. Yue Faulkner NP (Dr. Padron) at [facility] within 4-6 weeks. Appointment to be established during surgical visit. FOLLOW UP TESTING: CXR prior to surgical appointment
[2018-07-01] MEDS: SENNOSIDES/DOCUSATE SODIUM TAB PO SCH (09:31)
[2018-07-01] MEDS: PANTOPRAZOLE SODIUM 40 MG TAB PO SCH (09:31)
[2018-07-01] MEDS: POTASSIUM CL 20 MEQ TAB PO SCH (09:32)
[2018-07-01] MEDS: ASPIRIN 81 MG CHEWABLE TAB PO SCH (09:32)
[2018-07-01] MEDS: FUROSEMIDE 40 MG TAB PO SCH (09:32)
[2018-07-01] MEDS ORDERED: ACETAMINOPHEN 325 MG TAB PO PRN (10:30)
--- NOTE | 2018-07-01 10:37 | ECHO ---
[email or web address] [address] [address] Main: [phone] Fax: Transthoracic Echocardiogram Name: JULIO MOON MR#: [id number] Study Date: 07/01/2018 Study Time: 09:41 AM Date of : 1955 Age: 62 year(s) Height: 170.2 cm (67 in.) Weight: 100.7 kg (222 lb.) BSA: 2.11 m2 Gender: Male Examination: Echo Indication: Post AVR # 27 Inspiris Resilia bioprosthesis with ASC AO #28hemashield graft. Image Quality: Contrast: Requested by: Evelyn De La Cruz BP: 123 mmHg/78 mmHg Heart Rate: Rhythm: Normal sinus rhythm Indication: Post AVR # 27 Inspiris Resilia bioprosthesis with ASC AO #28hemashield graft. Procedure Staff V[employer]er T[employer] Machine Offbearer: Ric Gu RDCS Reading Physician: Talon Chin MD Requesting Provider: Conclusions: Mild concentric LV hypertrophy. Normal global systolic LV function. EF is 53 %. Trivial mitral valve regurgitation. Normal functioning aortic valve prosthesis. No prosthesis regurgitation. Measurements: Chambers Valvular Assessment AV/MV Valvular Assessment TV/PV Normal Normal Normal Name Value Range Name Value Range Name Value Range Ao Victoria (MM): 3.5 cm (2.2 cm-3.7 AV Vmax: 1.84 m/s (1 m/s-1.7 PV Vmax: 1.13 m/s (0.6 m/s-0.9 cm) m/s) m/s) IVSd (2D): 1.1 cm (0.6 cm-1.1 AV maxP mmHg ( - ) PV PGmax: 5 mmHg ( - ) cm) AV meanP mmHg ( - ) LVDd (2D): 4.8 cm (4.2 cm-5.9 LVOT Vmax: 1.05 m/s (0.7 m/s-1.1 cm) m/s) LVDs (2D): 3.4 cm (2.1 cm-4 KELLY (Vmax): 3.3 cm2 ( - ) cm) KELLY (VTI): 3.3 cm ( - ) LVPWd (2D): 1.3 cm (0.6 cm-1 MV E Vmax: 0.73 m/s ( - ) cm) MV A Vmax: 0.58 m/s ( - ) LVOTd 2.7 cm 2.7 cm mm MV E/A: 1.26 ( - ) LVEF (2D): 53 (>=54 %) Continued Measurements: Chambers Valvular Assessment AV/MV Name Value Name Value LADs: 4.7 cm MV E' Septal: 0.08 m/s Patient: JULIO MOON Study Date: 07/01/2018 Page 1 of 2 09:41 AM LADs Lon.7 cm MV E/E' Septal: 9.70 LA Area: 20.3 cm2 MV E/E' Lateral: 5.80 LA Volume: 62 ml LA Volume Index: 29.4 ml/m2 Findings: Left Ventricle: Normal size left ventricle. Mild concentric LV hypertrophy. Normal global systolic LV function. EF is 53 %. There is paradoxic septal motion suggestive of bundle branch block, paced cardiac rhythm, or prior cardiac surgery. Right Ventricle: Normal size right ventricle. Normal RV function. Left Atrium: The left atrium is normal in size. Right Atrium: The right atrium is normal in size. Mitral Valve: The mitral valve is normal in appearance. Trivial mitral valve regurgitation. No mitral stenosis is present. Aortic Valve: The aortic valve is a bioprosthesis. Normal functioning aortic valve prosthesis. No prosthesis stenosis. No prosthesis regurgitation. Tricuspid Valve: The tricuspid valve is normal in appearance and function. There is no significant tricuspid valve regurgitation. Pulmonic Valve: The pulmonic valve is normal in appearance and function. Aorta: The aorta is normal. Pericardium: No pericardial effusion. (No Signature Object) Patient: JULIO MOON Study Date: 07/01/2018 Page 2 of 2 09:41 AM [id number]
--- NOTE | 2018-07-01 12:04 | ASMTLACE ---
LACE Length of stay for Answers: 4-6 days current admission Acuity / Level of Answers: Yes Care: Did the patient have an inpatient admission? Comorbidities - select Answers: Congestive heart failure all that apply Coronary Artery Disease Other Notes: HTN # of Emergency department Answers: 0 visits in the last 6 months Score: 12 Date Signed: 07/01/2018 12:03 PM Electronically Signed By:Dali Blas RN
[2018-07-02] MEDS ORDERED: FUROSEMIDE 40 MG TAB PO SCH (09:00)
== END 2018-07-01 12:49 | disposition home or self-care (01) | DRG 216 ==
LOC: FCATH 12:29 → F2W 16:26 → F2N 06-27 08:30 → F2W 06-28 16:35
PROVIDERS: ADMIT Thoracic Surgery (Cardiothoracic Vascular Surgery); ATTEND Thoracic Surgery (Cardiothoracic Vascular Surgery)
PROC: B2111ZZ Fluoroscopy of Multiple Coronary Arteries using Low Osmolar Contrast (ICD-10-PCS; 2018-06-26)
PROC: 4A023N7 Measurement of Cardiac Sampling and Pressure, Left Heart, Percutaneous Approach (ICD-10-PCS; 2018-06-26)
PROC: B2151ZZ Fluoroscopy of Left Heart using Low Osmolar Contrast (ICD-10-PCS; 2018-06-26)
PROC: 5A1221Z Performance of Cardiac Output, Continuous (ICD-10-PCS; principal; 2018-06-27 07:15)
PROC: B245ZZ4 Ultrasonography of Left Heart, Transesophageal (ICD-10-PCS; principal; 2018-06-27 07:15)
PROC: 02RF08Z Replacement of Aortic Valve with Zooplastic Tissue, Open Approach (ICD-10-PCS; principal; 2018-06-27 07:15)
PROC: 02RX0JZ Replacement of Thoracic Aorta, Ascending/Arch with Synthetic Substitute, Open Approach (ICD-10-PCS; principal; 2018-06-27 07:15)
PROC: 02L70CK Occlusion of Left Atrial Appendage with Extraluminal Device, Open Approach (ICD-10-PCS; principal; 2018-06-27 07:15)
PROC: B245ZZ4 Ultrasonography of Left Heart, Transesophageal (ICD-10-PCS; 2018-07-01)
DX: I71.2 Thoracic aortic aneurysm, without rupture (principal); I35.1 Nonrheumatic aortic (valve) insufficiency; J95.1 Acute pulmonary insufficiency following thoracic surgery; D62 Acute posthemorrhagic anemia; E87.70 Fluid overload, unspecified; I10 Essential (primary) hypertension; E78.5 Hyperlipidemia, unspecified; F10.10 Alcohol abuse, uncomplicated; E66.01 Morbid (severe) obesity due to excess calories; G47.33 Obstructive sleep apnea (adult) (pediatric); Z82.49 Family history of ischemic heart disease and other diseases of the circulatory system; Z87.891 Personal history of nicotine dependence
CPT/HCPCS: 82435-PO; 82565-PO; 82947-PO; 83605-PO; 84132-PO; 84295-PO; 84520-PO; 85014-PO; 97116-GP; 97161-GP; 97166-GO; 97535-GO; C1768; C1769; J0690; J1100; J1170; J1265; J1644; J1815; J1885; J1940; J2001; J2150; J2250; J2370; J2405; J2704; J2720; J3010; J3475; J3480; P9041; Q9967

== ENCOUNTER → 2018-07-09 | Outpatient (CLI) | payer OTHER | LOC: FLAB 09:48 | PROVIDERS: ATTEND Thoracic Surgery (Cardiothoracic Vascular Surgery) | DX: J98.11 Atelectasis (principal); Z95.2 Presence of prosthetic heart valve; Z95.828 Presence of other vascular implants and grafts ==

== ENCOUNTER → 2018-11-22 | Outpatient (CLI) | payer OTHER | LOC: EMCIMAGING 10:03 | PROVIDERS: ATTEND Nurse Practitioner Adult Health | DX: I10 Essential (primary) hypertension (principal); I35.1 Nonrheumatic aortic (valve) insufficiency; Z95.2 Presence of prosthetic heart valve | CPT/HCPCS: 71275-PN ==